=== PATIENT | male | born 1945 | race Caucasian/White ===

== ENCOUNTER 2021-06-10 15:00 | Inpatient (IN) | payer OTHER ==
[~2021-06-10] VITALS: Ht 175.3 cm; Wt 75.0 kg
[2021-06-10 16:41] LABS: HEMOGLOBIN 14.6 gm/dl (14.0-17.5); RED BLOOD COUNT 4.89 M/UL (4.20-5.50); WHITE BLOOD COUNT 4.8 K/UL (4.5-11.0)
[2021-06-11] MEDS ORDERED: CARVEDILOL12.5 MG PO (11:28)
[2021-06-11] MEDS ORDERED: BUMETANIDE2 MG PO (11:28)
[2021-06-11] MEDS ORDERED: ASPIRIN EC81 MG PO (11:29)
[2021-06-11] MEDS ORDERED: LISINOPRIL40 MG PO (11:29)
[2021-06-11] MEDS ORDERED: DOXYCYCLINE HY100 MG PO (11:29)
[2021-06-11] MEDS ORDERED: TYLENOL EXTRA500 MG PO (11:30)
[2021-06-11] MEDS ORDERED: METFORMIN HCL500 M2 PO (11:30)
[2021-06-11] MEDS ORDERED: VITAMIN D21250 MCG PO (11:30)
[2021-06-11] MEDS ORDERED: METHYLPREDNISOLO4 M1 PO (11:31)
[2021-06-12 06:45] LABS: RED BLOOD COUNT 4.87 M/UL (4.20-5.50)
[2021-06-12 06:53] LABS: WHITE BLOOD COUNT 7.1 K/UL (4.5-11.0)
[2021-06-13 04:37] LABS: HEMOGLOBIN 13.2 gm/dl (14.0-17.5); RED BLOOD COUNT 4.58 M/UL (4.20-5.50); WHITE BLOOD COUNT 4.3 K/UL (4.5-11.0)
[2021-06-13 05:35] LABS: BUN/CREATININE RATIO 27 (0-10)
[2021-06-13] MEDS ORDERED: PROAIR HFA8.5 GM INH (10:07)
[2021-06-13] MEDS ORDERED: DECADRON6 MG PO (10:07)
== END 2021-06-13 15:25 | disposition home or self-care (01) | DRG 177 ==
LOC: ER1 15:00 → MED SURG 4 06-11 09:04 → CDU 06-11 09:04 → MED SURG 4 06-11 16:25
PROVIDERS: Physician Assistant; Physician Assistant Medical; ADMIT Internal Medicine
PROC: 8E0ZXY6 Isolation (ICD-10-PCS; principal; 2021-06-11)
PROC: XW033E5 Introduction of Remdesivir Anti-infective into Peripheral Vein, Percutaneous Approach, New Technology Group 5 (ICD-10-PCS; 2021-06-11)
PROC: 3E0333Z Introduction of Anti-inflammatory into Peripheral Vein, Percutaneous Approach (ICD-10-PCS; 2021-06-11)
PROC: B24BZZZ Ultrasonography of Heart with Aorta (ICD-10-PCS; 2021-06-11)
DX: U07.1 COVID-19 (principal); J12.82 Pneumonia due to coronavirus disease 2019; J96.01 Acute respiratory failure with hypoxia; I21.A1 Myocardial infarction type 2; N17.9 Acute kidney failure, unspecified; E87.6 Hypokalemia; E83.42 Hypomagnesemia; E78.5 Hyperlipidemia, unspecified; Z96.659 Presence of unspecified artificial knee joint; I12.9 Hypertensive chronic kidney disease with stage 1 through stage 4 chronic kidney disease, or unspecified chronic kidney disease; N18.9 Chronic kidney disease, unspecified; E11.22 Type 2 diabetes mellitus with diabetic chronic kidney disease; Z79.899 Other long term (current) drug therapy; Z79.82 Long term (current) use of aspirin; Z79.4 Long term (current) use of insulin; Z93.3 Colostomy status
CPT/HCPCS: ECHO; 36415; 71045; 80048; 80053; 82272; 82550; 82553; 82962; 83036; 83735; 83874; 83880; 84484; 85025; 85027; 86140; 93005; 93306; 94640; 94664; 94760; 96372; 99285; J0248; J0696; J1100; J1650; J3475; J7030; U0002